=== PATIENT | female | born 1960 | race Caucasian/White ===

== ENCOUNTER 2017-05-15 14:37 | Outpatient (CLI) | payer BC | END 2017-05-15 14:38 | disposition home or self-care (01) | LOC: BICMAMMO 14:37 | PROVIDERS: ATTEND Obstetrics & Gynecology | DX: Z12.31 Encounter for screening mammogram for malignant neoplasm of breast (principal); Z13.820 Encounter for screening for osteoporosis; M81.0 Age-related osteoporosis without current pathological fracture; M85.852 Other specified disorders of bone density and structure, left thigh; R92.1 Mammographic calcification found on diagnostic imaging of breast | CPT/HCPCS: 77063; 77067; 77080 ==

== ENCOUNTER 2018-03-20 14:23 | Outpatient (CLI) | payer OTHER ==
--- NOTE | 2018-03-20 15:44 | ULT ---
VENOUS DOPPLER ULTRASOUND OF THE RIGHT LOWER EXTREMITY: 03/20/18 HISTORY: Pain in the right medial thigh. TECHNIQUE: Mcclain scale ultrasound with color flow imaging of the deep venous system of the right lower extremity is performed. FINDINGS: There is good flow, compression, and augmentation noted in the common femoral, femoral, deep femoral, popliteal, posterior tibial and greater saphenous veins in the right lower extremity. IMPRESSION: No evidence of DVT in the right lower extremity. POS: OFF
== END 2018-03-20 14:24 | disposition home or self-care (01) ==
LOC: BICULT 14:23
PROVIDERS: ATTEND Obstetrics & Gynecology
DX: M79.651 Pain in right thigh (principal); Z86.73 Personal history of transient ischemic attack (TIA), and cerebral infarction without residual deficits

== ENCOUNTER 2018-05-16 13:15 | Outpatient (CLI) | payer OTHER ==
--- NOTE | 2018-05-16 15:20 | BD ---
BONE DENSITOMETRY USING DEXA: Date: 05/16/18 HISTORY: Postmenopausal screening for osteoporosis. FINDINGS: Lumbar Spine: BMD (g/cm2) L1 0.730 T-Score: -2.4 Z-Score: -1.4 L2 0.779 T-Score: -2.3 Z-Score: -1.1 L3 0.807 T-Score: -2.5 Z-Score: -1.3 L4 0.774 T-Score: -2.6 Z-Score: -1.4 L1-L4 0.774 T-Score: -2.5 Z-Score: -1.3 Femoral Neck: 0.704 T-Score: -1.3 Z-Score: -0.2 Total Femur: 0.840 T-Score: -0.8 Z-Score: -0.1 IMPRESSION: Osteoporosis. POS: JULIÁN
--- NOTE | 2018-05-21 13:23 | MMO ---
Bilateral MAMMO Bilat Screen [facility]. CLINICAL HISTORY: Patient is 58 years old and is seen for screening. The patient has the following family history of breast cancer: paternal grandmother, at age 50 and mother, at age 66. The patient has no personal history of cancer. The patient has a history of right Cyst Aspiration at age 43 - benign, left Excisional Biopsy at age 29 - benign and left Excisional Biopsy at age 23 - benign. VIEWS: The views performed were: bilateral craniocaudal with tomosynthesis; bilateral mediolateral oblique with tomosynthesis; and bilateral exaggerated craniocaudal. FILMS COMPARED: The present examination has been compared to prior imaging studies performed at [facility] on 02/01/2008, 02/05/2009, 02/12/2010, 02/14/2011, 09/12/2012, 10/01/2013, 05/07/2015, 05/12/2015 and 05/15/2017, at [facility] on 12/30/2004, and at [facility] on 09/04/2003 and 07/07/2005. MAMMOGRAM FINDINGS: The breasts are heterogeneously dense, which could obscure a lesion on mammography. There are benign appearing calcifications seen in both breasts. There are no suspicious masses, calcifications or areas of architectural distortion. IMPRESSION: THERE IS NO MAMMOGRAPHIC EVIDENCE OF MALIGNANCY. A ROUTINE FOLLOW-UP MAMMOGRAM IN 1 YEAR IS RECOMMENDED. THE RESULTS OF THIS EXAM WERE SENT TO THE PATIENT. ACR BI-RADS Category 2 - Benign finding MAMMOGRAPHY NOTE: 1. A negative mammogram report should not delay a biopsy if a dominant of clinically suspicious mass is present. 2. Approximately 10% to 15% of breast cancers are not detected by mammography. 3. Adenosis and dense breasts may obscure an underlying neoplasm.
== END 2018-05-16 13:16 | disposition home or self-care (01) ==
LOC: BICMAMMO 13:15
PROVIDERS: ATTEND Obstetrics & Gynecology
DX: Z12.31 Encounter for screening mammogram for malignant neoplasm of breast (principal); Z13.820 Encounter for screening for osteoporosis; M81.0 Age-related osteoporosis without current pathological fracture; Z79.890 Hormone replacement therapy; Z80.3 Family history of malignant neoplasm of breast
CPT/HCPCS: 77063; 77067; 77080

== ENCOUNTER 2019-02-18 13:21 | Outpatient (CLI) | payer OTHER ==
--- NOTE | 2019-02-18 14:42 | MMO ---
Bilateral MAMMO Bilat Diag [facility]. CLINICAL HISTORY: Patient is 59 years old and is seen for diagnostic exam. The patient has the following family history of breast cancer: paternal grandmother, at age 50 and mother, at age 66. The patient has no personal history of cancer. The patient has a history of right Cyst Aspiration at age 43 - benign, left Excisional Biopsy at age 29 - benign and left Excisional Biopsy at age 23 - benign. VIEWS: The views performed were: bilateral craniocaudal with tomosynthesis; bilateral mediolateral oblique with tomosynthesis; and bilateral mediolateral with tomosynthesis. FILMS COMPARED: The present examination has been compared to prior imaging studies performed at [facility] on 05/15/2017, 05/16/2018 and 02/18/2019. This study has been interpreted with the assistance of computer-aided detection. MAMMOGRAM FINDINGS: The breasts are heterogeneously dense, which could obscure a lesion on mammography. There are stable benign appearing calcifications seen in both breasts. There are no suspicious masses, suspicious calcifications, or new areas of architectural distortion. IMPRESSION: THERE IS NO MAMMOGRAPHIC EVIDENCE OF MALIGNANCY. A ROUTINE FOLLOW-UP MAMMOGRAM IN 1 YEAR IS RECOMMENDED. THE RESULTS OF THIS EXAM WERE SENT TO THE PATIENT. ACR BI-RADS Category 2 - Benign finding MAMMOGRAPHY NOTE: 1. A negative mammogram report should not delay a biopsy if a dominant of clinically suspicious mass is present. 2. Approximately 10% to 15% of breast cancers are not detected by mammography. 3. Adenosis and dense breasts may obscure an underlying neoplasm. Reported by: JUNG REYES MD Electonically Signed: [id number]
--- NOTE | 2019-02-18 14:59 | ULT ---
BILATERAL BREAST ULTRASOUND: Date: 02/18/19 HISTORY: Palpable abnormality in the upper outer aspect of both breasts. FINDINGS: Focused ultrasound of the areas of palpable concern obtained bilaterally. Specifically, the 10 o'cloc k position of the right breast and the 2-3 o'clock position of the left breast are assessed. Dense br east tissue is noted in the areas of palpable concern. No mass lesion or abnormal shadowing. Negative imaging should not delay biopsy of a clinically suspicious abnormality. IMPRESSION: Unremarkable bilateral breast ultrasound. POS: OFF
== END 2019-02-18 13:22 | disposition home or self-care (01) ==
LOC: BICMAMMO 13:21
PROVIDERS: ATTEND Nurse Practitioner Family
DX: N63.11 Unspecified lump in the right breast, upper outer quadrant (principal); N63.21 Unspecified lump in the left breast, upper outer quadrant; N64.4 Mastodynia; Z80.3 Family history of malignant neoplasm of breast
CPT/HCPCS: 77066; G0279

== ENCOUNTER 2020-08-18 14:04 | Inpatient (IN) | payer BC, OTHER, SELFPAY ==
[~2020-08-18 14:04] MED LIST: Iopamidol-370 76% 500 ML 1 ML ONE
[2020-08-18 14:49] LABS: ALT (SGPT) 49 U/L (8-55); AST (SGOT) 31 U/L (5-34); Albumin 4.4 g/dL (3.5-5.0); Alkaline Phosphatase 79 U/L (40-110); Anion Gap 15 mmol/L (10-20); BUN (Urea Nitrogen) 13 mg/dL (9.8-20.1); Bilirubin, Total 0.4 mg/dL (0.2-1.2); Calc. Creatinine Clearance 0 mL/min (70-130); Calcium 9.3 mg/dL (7.8-10.44); Carbon Dioxide 23 mmol/L (22-29); Chloride 105 mmol/L (98-107); Globulin 2.8 g/dL (2.4-3.5); Glucose 106 mg/dL (70-105); Potassium 4.2 mmol/L (3.5-5.1); Protein, Total 7.2 g/dL (6.0-8.3); Sodium 139 mmol/L (136-145)
[2020-08-18 15:56] LABS: Bilirubin Negative (Negative); Blood, Urine Negative (Negative); Clarity Clear (Clear); Glucose, Urine (Dipstick) Normal (Negative); Ketone, Urine Negative (Negative); Leukocyte Negative Leu/uL (Negative); Nitrite Negative (Negative); Protein, Urine (Dipstick) Negative (Neg-Trace); Specific Gravity, Urine 1.003 (1.002-1.036); Urobilinogen Normal mg/dL (Less than 2)
[2020-08-18] MEDS ORDERED: Nitroglycerin 2% Ointment 1 INCH/1 GM Packet ONE (16:20)
[2020-08-18] MEDS ORDERED: Ondansetron PF 4 MG/2 ML Vial ONE (16:29)
[2020-08-18] MEDS ORDERED: Morphine 4 MG/ML VIAL ONE (16:29)
[2020-08-18 17:04] LABS: #Basophils 0.1 thou/uL (0.0-0.2); #Eosinphils 0.3 thou/uL (0.0-0.7); #Lymphocytes 2.3 thou/uL (1.20-3.40); #Monocytes 0.7 thou/uL (0.11-0.59); #Neutrophils 3.4 thou/uL (1.40-6.50); %Eosinophils 4.4 % (0.0-10.0); %Monocytes 9.7 % (0.0-10.0); %Neutrophils 50.9 % (42.0-75.0); Mean Corpuscular HGB CONC 33.7 g/dL (32.0-36.0); Mean Corpuscular Volume 94.8 fL (78.0-98.0); Mean Platelet Volume 8.6 fL (7.4-10.4); Platelet Count 225 thou/uL (130-400); RBC Distribution Width 11.3 % (11.5-14.5); Red Blood Cell (RBC) Count 4.05 mill/uL (4.20-5.40); White Blood Cell (WBC) Count 6.7 thou/uL (4.8-10.8)
[2020-08-18] MEDS ORDERED: Acetaminophen 325 MG TAB PO PRN (18:37)
[2020-08-18] MEDS ORDERED: Ondansetron PF 4 MG/2 ML Vial IVP PRN (18:37)
[2020-08-18] MEDS ORDERED: Morphine 2 MG/ML VIAL SLOW IVP PRN (18:45)
[2020-08-18 19:31] LABS: Troponin I Less than 0.010 ng/mL (< 0.028)
[2020-08-18] MEDS: Nicotine 14 MG PATCH TD SCH (21:55)
[2020-08-18] MEDS: Sodium Chloride 0.9% 1,000 ML IV SCH (22:01)
[2020-08-18] MEDS: Ketorolac Tromethamine 30 MG/ML VIAL IVP PRN (22:01)
[2020-08-18 22:57] LABS: Troponin I Less than 0.010 ng/mL (< 0.028)
[2020-08-19] MEDS: Sodium Chloride 0.9% 1,000 ML IV SCH ×4 (01:14→18:44)
[2020-08-19 01:47] LABS: Troponin I Less than 0.010 ng/mL (< 0.028)
[2020-08-19 06:06] LABS: ALT (SGPT) 33 U/L (8-55); AST (SGOT) 20 U/L (5-34); Albumin 3.5 g/dL (3.5-5.0); Alkaline Phosphatase 58 U/L (40-110); Anion Gap 9 mmol/L (10-20); BUN (Urea Nitrogen) 11 mg/dL (9.8-20.1); Bilirubin, Total 0.4 mg/dL (0.2-1.2); Calc. Creatinine Clearance 93 mL/min (70-130); Calcium 8.2 mg/dL (7.8-10.44); Carbon Dioxide 25 mmol/L (22-29); Chloride 109 mmol/L (98-107); Globulin 2.2 g/dL (2.4-3.5); Glucose 87 mg/dL (70-105); Lipase 14 U/L (8-78); Potassium 3.5 mmol/L (3.5-5.1); Protein, Total 5.7 g/dL (6.0-8.3); Sodium 139 mmol/L (136-145)
[2020-08-19] MEDS ORDERED: ADENOSINE 60 MG/20 ML VIAL ONE (09:01)
[2020-08-19] MEDS: Ketorolac Tromethamine 30 MG/ML VIAL IVP PRN (16:14)
[2020-08-19] MEDS: Sucralfate 1 GM TAB PO SCH ×2 (17:17→21:41)
[2020-08-19] MEDS: Nicotine 14 MG PATCH TD SCH (18:41)
[2020-08-19] MEDS: Escitalopram Oxalate 10 mg Tablet PO SCH (23:37)
[2020-08-20] MEDS: Sodium Chloride 0.9% 1,000 ML IV SCH ×2 (03:31→10:19)
[2020-08-20 07:35] LABS: ALT (SGPT) 32 U/L (8-55); AST (SGOT) 21 U/L (5-34); Albumin 3.5 g/dL (3.5-5.0); Alkaline Phosphatase 59 U/L (40-110); Anion Gap 12 mmol/L (10-20); BUN (Urea Nitrogen) 10 mg/dL (9.8-20.1); Bilirubin, Total 0.3 mg/dL (0.2-1.2); Calc. Creatinine Clearance 95 mL/min (70-130); Calcium 8.3 mg/dL (7.8-10.44); Carbon Dioxide 21 mmol/L (22-29); Chloride 111 mmol/L (98-107); Globulin 2.6 g/dL (2.4-3.5); Glucose 83 mg/dL (70-105); Lipase 24 U/L (8-78); Potassium 4.2 mmol/L (3.5-5.1); Protein, Total 6.1 g/dL (6.0-8.3); Sodium 140 mmol/L (136-145)
[2020-08-20] MEDS: Sucralfate 1 GM TAB PO SCH ×4 (08:25→21:15)
[2020-08-20] MEDS: Atorvastatin Calcium 40 MG TAB PO SCH (08:25)
[2020-08-20] MEDS: Aspirin Chewable 81 MG TAB PO SCH (08:25)
[2020-08-20] MEDS: Calcium Carbonate 600 MG TAB PO SCH ×2 (08:25→15:39)
[2020-08-20] MEDS: Ketorolac Tromethamine 30 MG/ML VIAL IVP PRN (14:13)
[2020-08-20] MEDS: Nicotine 14 MG PATCH TD SCH (18:15)
[2020-08-20] MEDS: Escitalopram Oxalate 10 mg Tablet PO SCH (21:15)
[2020-08-21 05:15] LABS: #Basophils 0.1 thou/uL (0.0-0.2); #Eosinphils 0.4 thou/uL (0.0-0.7); #Lymphocytes 2.6 thou/uL (1.20-3.40); #Monocytes 0.7 thou/uL (0.11-0.59); #Neutrophils 2.6 thou/uL (1.40-6.50); %Basophils 0.8 % (0.0-1.0); %Eosinophils 6.7 % (0.0-10.0); %Lymphocytes 40.7 % (21.0-51.0); %Monocytes 10.4 % (0.0-10.0); %Neutrophils 41.5 % (42.0-75.0); Hemoglobin 12.2 g/dL (12.0-16.0); Mean Corpuscular HGB CONC 33.5 g/dL (32.0-36.0); Mean Corpuscular Hemoglobin 31.6 pg (27.0-31.0); Mean Corpuscular Volume 94.5 fL (78.0-98.0); Mean Platelet Volume 8.6 fL (7.4-10.4); Platelet Count 214 thou/uL (130-400); RBC Distribution Width 11.3 % (11.5-14.5); Red Blood Cell (RBC) Count 3.87 mill/uL (4.20-5.40); White Blood Cell (WBC) Count 6.3 thou/uL (4.8-10.8)
[2020-08-21 05:33] LABS: Anion Gap 12 mmol/L (10-20); BUN (Urea Nitrogen) 11 mg/dL (9.8-20.1); Calc. Creatinine Clearance 87 mL/min (70-130); Calcium 9.2 mg/dL (7.8-10.44); Carbon Dioxide 26 mmol/L (22-29); Chloride 104 mmol/L (98-107); Glucose 88 mg/dL (70-105); Potassium 4.4 mmol/L (3.5-5.1); Sodium 138 mmol/L (136-145)
[2020-08-21] MEDS: Atorvastatin Calcium 40 MG TAB PO SCH (07:42)
[2020-08-21] MEDS: Sucralfate 1 GM TAB PO SCH (07:42)
[2020-08-21] MEDS: Aspirin Chewable 81 MG TAB PO SCH (07:43)
[2020-08-21] MEDS: Calcium Carbonate 600 MG TAB PO SCH (07:43)
[2020-08-21 07:45] VITALS: BP 150/80; TEMP 98
== END 2020-08-21 10:05 | disposition home or self-care (01) | DRG 73 ==
LOC: ERS 14:04 → 2SW 18:37 → OBSVTOIN 08-20 15:45
PROVIDERS: ADMIT Internal Medicine; ATTEND Hospitalist
DX: G58.8 Other specified mononeuropathies (principal); K85.90 Acute pancreatitis without necrosis or infection, unspecified; Z20.822 Contact with and (suspected) exposure to COVID-19; Z96.652 Presence of left artificial knee joint; Z96.29 Presence of other otological and audiological implants; F17.290 Nicotine dependence, other tobacco product, uncomplicated; Z79.899 Other long term (current) drug therapy; Z79.82 Long term (current) use of aspirin; Z90.710 Acquired absence of both cervix and uterus; Z82.3 Family history of stroke; Z82.49 Family history of ischemic heart disease and other diseases of the circulatory system; Z80.0 Family history of malignant neoplasm of digestive organs; Z95.5 Presence of coronary angioplasty implant and graft
CPT/HCPCS: 36415; 71045; 74177; 76705; 78452; 80048; 80053; 81003; 82150; 83690; 84484; 85025; 93005; 93017; 93306; 96361; 96374; 96375; A9500; G0378; J0153; J1885; J2270; J2405; Q9967

== ENCOUNTER 2023-08-08 10:53 | Emergency (ER) | payer BC, OTHER ==
[2023-08-08 11:33] LABS: #Basophils 0.04 10x3/uL (0.0-0.2); %Basophils 0.6 % (0.0-1.0); %Eosinophils 4.3 % (0.0-10.0); %Lymphocytes 40.2 % (21.0-51.0); %Monocytes 8.7 % (0.0-10.0); Hematocrit 40.6 % (36.0-47.0); Hemoglobin 13.9 g/dL (12.0-16.0); Mean Corpuscular HGB CONC 34.2 g/dL (32.0-36.0); Mean Corpuscular Hemoglobin 31.2 pg (27.0-31.0); Mean Corpuscular Volume 91.2 fL (78.0-98.0); Mean Platelet Volume 10.7 fL (7.4-10.4); Platelet Count 246 10x3/uL (130-400); RBC Distribution Width 12.4 % (11.5-14.5); Red Blood Cell (RBC) Count 4.45 mill/uL (4.20-5.40)
[2023-08-08 11:51] LABS: INR-International Normal Ratio 0.9; Prothrombin Time 12.4 sec (12.0-14.7)
[2023-08-08 11:52] LABS: PTT 28.9 sec (22.9-36.1)
[2023-08-08 11:53] LABS: Bacteria/HPF None Seen HPF (None Seen); Bilirubin Negative (Negative); Blood, Urine Negative (Negative); CAUTI Indications for Culture Pelvic or flank pain; Clarity Clear (Clear); Glucose, Urine (Dipstick) Normal (Negative); Ketone, Urine Negative (Negative); Leukocyte Negative Leu/uL (Negative); Nitrite Negative (Negative); Protein, Urine (Dipstick) Negative (Neg-Trace); RBC/HPF 0-3 HPF (0-3); Specific Gravity, Urine 1.006 (1.002-1.036); Squamous Epithelial None Seen HPF (0-3); Urobilinogen Normal mg/dL (Less than 2); WBC/HPF None Seen HPF (0-3); pH, Urine 7.5 (5.0-9.0)
[2023-08-08 11:58] LABS: Troponin I Less than 0.010 ng/mL (< 0.028)
[2023-08-08 12:03] LABS: Urine Culture Reflex No No
[2023-08-08 12:06] LABS: ALT (SGPT) 25 U/L (8-55); AST (SGOT) 27 U/L (5-34); Albumin 4.1 g/dL (3.4-4.8); Alkaline Phosphatase 71 U/L (40-110); Anion Gap 13 mmol/L (10-20); BUN (Urea Nitrogen) 13 mg/dL (9.8-20.1); Bilirubin, Total 0.4 mg/dL (0.2-1.2); Calc. Creatinine Clearance 0 mL/min (70-130); Calcium 10.2 mg/dL (7.8-10.44); Carbon Dioxide 23 mmol/L (23-31); Chloride 104 mmol/L (98-107); Estimated GFR 89; Globulin 3.5 g/dL (2.4-3.5); Glucose 80 mg/dL (80-115); Magnesium 1.9 mg/dL (1.6-2.6); Potassium 4.5 mmol/L (3.5-5.1); Protein, Total 7.6 g/dL (5.8-8.1); Sodium 135 mmol/L (136-145)
== END 2023-08-08 13:40 | disposition home or self-care (01) ==
LOC: ERS 10:53
DX: R00.2 Palpitations (principal); F17.290 Nicotine dependence, other tobacco product, uncomplicated; F17.210 Nicotine dependence, cigarettes, uncomplicated
CPT/HCPCS: 71045; 80053; 81001; 83735; 83880; 84443; 84484; 85025; 85610; 85730; 93005